=== PATIENT | female | born 1945 | race Caucasian/White ===

== ENCOUNTER → 2016-10-08 | Outpatient (CLI) | payer OTHER ==
[~2016-10-08] MED LIST: ALBUAER INH; AMOX500C3 PO; ATEN-173 PO; ATEN50TA8 PO; CHOL1TAB42 PO; CLR10 PO; CYAN10005 IM; DIPH1TAB PO; FLUT220A INH; HYDR-4330 PO; IBUP-1050 PO; LIDO5DIS10 TD; LIOT5TAB9 PO; ONDA4TAB46 PO; OPTIRAY 320 IV PRN; PRLSR20 PO; SYN100 PO; TRIA37.5 PO; TYLOTC500 PO; WARF5TAB7 PO
--- NOTE | 2016-10-08 13:18 | DIAGNOSTIC IMAGING REPORT ---
ABDOMEN AND PELVIS CT WITH IV AND ORAL CONTRAST CT DOSE: 1250.54 mGy.cm HISTORY: Pain. Nausea. RLQ PAIN TECHNIQUE: Multiaxial CT images of the abdomen and pelvis were performed following the use of intravenous and oral contrast. COMPARISON STUDY: None. FINDINGS: Lung bases are clear. Mild fatty infiltration of liver. Gallbladder is negative for distention. Diffuse fatty replacement of the pancreas. Kidneys enhance uniformly. There are postoperative changes to low lumbar spine. Bowel pattern is nonobstructive. The appendix is normal. Findings of mild chronic sigmoid diverticulosis. There is no evidence for acute diverticulitis. Patient is status post total right hip replacement. IMPRESSION: 1. No acute process of the abdomen or pelvis. 2. Normal appendix. 3. Diffuse fatty infiltration of the pancreas. 4. Mild chronic sigmoid diverticulosis. Electronically signed by: Samuel Washington M.D. 10/08/2016 1:17 PM Dictated Date/Time: 10/08/2016 1:11 PM
== END | disposition home or self-care (01) ==
LOC: C.CTS 12:26
PROVIDERS: ATTEND Registered Nurse
DX: R10.31 Right lower quadrant pain (principal); K86.89 Other specified diseases of pancreas

== ENCOUNTER → 2016-12-05 | Outpatient (CLI) | payer OTHER ==
[~2016-12-05] MED LIST changes: -OPTIRAY 320 IV PRN
== END | disposition home or self-care (01) ==
LOC: C.LAB1850 14:44
PROVIDERS: ATTEND Internal Medicine
DX: R35.0 Frequency of micturition (principal); E89.0 Postprocedural hypothyroidism; E55.9 Vitamin D deficiency, unspecified; G89.29 Other chronic pain; Z12.11 Encounter for screening for malignant neoplasm of colon

== ENCOUNTER → 2016-12-24 | Outpatient (CLI) | payer OTHER ==
[~2016-12-24] MED LIST changes: -DIPH1TAB PO; +DIPH1TAB87 PO
[2016-12-24 13:47] LABS: C-REACTIVE PROTEIN 0.89 mg/dl (0-0.29); RHEUMATOID FACTOR < 10.0 U/mL (0-15)
[2016-12-27 09:57] LABS: ANTI-CENTROMERE AB <1.0 NEG AI (<1.0 NEG); ANTI-SS-A <1.0 NEG AI (<1.0 NEG); ANTI-SS-B <1.0 NEG AI (<1.0 NEG); CYCLIC CITRULLINATED PEPT IGG <16 UNITS (<20); DNA ds CRITHIDIA NEGATIVE (NEGATIVE); MICROSOMAL AB 3 IU/ML (<9); Sm Antibody <1.0 NEG AI (<1.0 NEG)
== END | disposition home or self-care (01) ==
LOC: C.LAB1850 10:57
PROVIDERS: ATTEND Internal Medicine
DX: M25.50 Pain in unspecified joint (principal); E89.0 Postprocedural hypothyroidism; E53.8 Deficiency of other specified B group vitamins; Z51.81 Encounter for therapeutic drug level monitoring; Z79.01 Long term (current) use of anticoagulants; I48.91 Unspecified atrial fibrillation

== ENCOUNTER → 2017-01-02 | Outpatient (CLI) | payer OTHER | END | disposition home or self-care (01) | LOC: C.LABSPEC 16:26 | PROVIDERS: ATTEND Physician Assistant | DX: J02.9 Acute pharyngitis, unspecified (principal) ==

== ENCOUNTER → 2017-02-06 | Outpatient (CLI) | payer OTHER | END | disposition home or self-care (01) | LOC: C.LAB1850 15:04 | PROVIDERS: ATTEND Internal Medicine | DX: R89.4 Abnormal immunological findings in specimens from other organs, systems and tissues (principal) ==

== ENCOUNTER → 2017-06-14 | Outpatient (CLI) | payer OTHER ==
[~2017-06-14] MED LIST changes: +DIPH1TAB PO; -DIPH1TAB87 PO
[2017-06-14 15:44] LABS: BLOOD UREA NITROGEN 15 mg/dl (7-18)
== END | disposition home or self-care (01) ==
LOC: C.LAB1850 14:21
DX: H90.41 Sensorineural hearing loss, unilateral, right ear, with unrestricted hearing on the contralateral side (principal)

== ENCOUNTER → 2017-06-26 | Outpatient (CLI) | payer OTHER ==
[~2017-06-26] MED LIST changes: +GADAVIST IV PRN
--- NOTE | 2017-06-26 12:28 | DIAGNOSTIC IMAGING REPORT ---
SOFT TISS HEAD/NECK-THYROID CLINICAL HISTORY: 71 years-old Female with R SIDE HEARING LOSS. Acute right-sided hearing loss. History of prior radiation to the thyroid over 20 years ago with history of Graves' disease COMPARISON: CT chest 04/05/2014 TECHNIQUE: Multiple real time sonographic images of the thyroid were obtained accessing zuniga scale appearance and color doppler flow. FINDINGS: Study is limited secondary to body habitus. MEASUREMENTS: Right lobe: 3.7 x 1.1 x 1.1 cm Left lobe: 2.9 x 0.9 x 0.9 cm Isthmus: 0.2 cm PARENCHYMA: The thyroid parenchymal echotexture is generally homogeneous and is slightly echogenic. NODULES: No discrete nodules are appreciated. IMPRESSION: 1. Echogenic slightly diminutive size of the thyroid may be secondary to a history of prior thyroiditis or radiation therapy. No discrete thyroid nodule identified. 2. Limited study as above. The above report was generated using voice recognition software. It may contain grammatical, syntax or spelling errors. Electronically signed by: Martin Jaffe M.D. 06/26/2017 12:27 PM Dictated Date/Time: 06/26/2017 12:23 PM
--- NOTE | 2017-06-26 13:52 | DIAGNOSTIC IMAGING REPORT ---
BRAIN COMBO FOR IAC HISTORY: 71 years-old Female R SIDE HEARING LOSS acute right-sided hearing loss status post acoustic trauma to neck years prior. Bilateral hearing loss, right greater than left, progressively worsened COMPARISON: None available TECHNIQUE: Multiplanar multisequence MRI of the brain was obtained both with and without the use of 10.7 mL Gadavist utilizing institutional internal auditory canal protocol. FINDINGS: There is no restricted diffusion to suggest acute ischemia. The midline structures including the corpus callosum, brainstem, optic chiasm, infundibulum and pituitary gland are unremarkable in the sagittal T1 sequence. There is no cerebellar tonsillar herniation. 5 mm pineal gland cyst incidentally noted. Mild uncovertebral spurring and facet arthrosis of the imaged upper cervical spine. Degenerative pannus is noted surrounding the odontoid process. There is no acute intracranial hemorrhage, midline shift, abnormal extra-axial collections, hydrocephalus or intracranial mass. No focal signal abnormalities of the brain parenchyma identified. There is normal course of the bilateral 7th and 8th cranial nerves without mass identified involving the internal auditory canal. No cerebellar pontine angle mass. Cisternal portions of the bilateral 5th cranial nerves also appear normal. No abnormal enhancement identified. No enhancing intra-axial or extra-axial mass. The major flow voids at the level of the skull base appear patent. There is thinning of the optic lenses bilaterally. Mastoid air cells are clear. Paranasal sinuses are also clear. Scalp and soft tissues are unremarkable. IMPRESSION: 1. No acute intracranial abnormality. 2. Normal appearance of the bilateral internal auditory canals without abnormal enhancement or focal mass. 3. Incidental note is made of a 5 mm pineal gland cyst. The above report was generated using voice recognition software. It may contain grammatical, syntax or spelling errors. Electronically signed by: Martin Jaffe M.D. 06/26/2017 1:51 PM Dictated Date/Time: 06/26/2017 1:43 PM
== END | disposition home or self-care (01) ==
LOC: C.ULTRBC 11:30
DX: R07.0 Pain in throat (principal); H90.41 Sensorineural hearing loss, unilateral, right ear, with unrestricted hearing on the contralateral side

== ENCOUNTER → 2017-07-02 | Outpatient (CLI) | payer OTHER ==
[~2017-07-02] MED LIST changes: -GADAVIST IV PRN
--- NOTE | 2017-07-02 11:27 | DIAGNOSTIC IMAGING REPORT ---
(BARIUM SWALLOW) ESOPHAGUS CLINICAL HISTORY: 71 years-old Female with R07.0 Throat discomfort. Patient reports acute stroke pain with feeling of intermittent aspiration. TECHNIQUE: Barium contrast, barium tablet and effervescent crystals were administered to the patient under fluoroscopic examination. Multiple images were obtained and submitted for review. FLUOROSCOPY TIME: 1.2 minutes COMPARISON: CTA of the chest 04/05/2014. FINDINGS: Study was limited secondary to patient cooperation. During deglutition, contrast material flowed freely through the cervical esophagus. No filling defect or mucosal abnormality is identified. Barium tablet passed freely. No abnormal stricturing or mass effect is seen. The mid to distal esophagus is well coated and distended. No abnormal stricturing or mucosal abnormality is identified. No significant reflux or hiatal hernia was demonstrated during the exam. The gastroesophageal junction is normal in appearance. Mild tertiary contractions are seen within the distal one third of the esophagus. IMPRESSION: 1. Mild tertiary contractions of the distal esophagus with otherwise normal study. 2. No gastroesophageal reflux identified. The above report was generated using voice recognition software. It may contain grammatical, syntax or spelling errors. Electronically signed by: Martin Jaffe M.D. 07/02/2017 11:25 AM Dictated Date/Time: 07/02/2017 11:23 AM
== END | disposition home or self-care (01) ==
LOC: C.RAD 10:39
PROVIDERS: ATTEND Internal Medicine
DX: R07.0 Pain in throat (principal)

== ENCOUNTER → 2017-09-26 | Outpatient (CLI) | payer OTHER ==
[~2017-09-26] MED LIST changes: -DIPH1TAB PO; +DIPH1TAB87 PO
[2017-09-26 10:15] LABS: BASO % 0.3 %; BASO ABS # 0.02 K/uL (0-0.2); EOS % 4.1 %; HEMATOCRIT 41.2 % (37-47); HEMOGLOBIN 13.5 g/dL (12.0-16.0); IG# 0.01 K/uL (0.00-0.02); LYMPH % 23.8 %; LYMPH ABS # 1.72 K/uL (1.2-3.4); MEAN CELL VOLUME 92.6 fL (80-100); MEAN CORPUSCULAR HEMOGLOBIN 30.3 pg (25-34); MEAN CORPUSCULAR HGB CONC 32.8 g/dl (32-36); MONO % 6.2 %; MONO ABS # 0.45 K/uL (0.11-0.59); NEUT % 65.5 %; NEUT ABS # 4.74 K/uL (1.4-6.5); PLATELET COUNT 228 K/uL (130-400); RED CELL DISTRIBUTION WIDTH CV 14.1 % (11.5-14.5); WHITE BLOOD COUNT 7.24 K/uL (4.8-10.8)
[2017-09-26 10:44] LABS: ALBUMIN 3.6 gm/dl (3.4-5.0); ALT/SGPT 28 U/L (12-78); AST/SGOT 13 U/L (15-37); BLOOD UREA NITROGEN 17 mg/dl (7-18); CALCIUM 9.4 mg/dl (8.5-10.1); CARBON DIOXIDE 33 mmol/L (21-32); CREATININE 1.06 mg/dl (0.60-1.20); GLUCOSE 92 mg/dl (70-99); POTASSIUM 3.6 mmol/L (3.5-5.1); SODIUM 139 mmol/L (136-145)
[2017-09-26 10:53] LABS: ALKALINE PHOSPHATASE 85 U/L (45-117); CHOLESTEROL 228 mg/dl (0-200); LDL CHOLESTEROL CALCULATED 129 mg/dl; TOTAL PROTEIN 7.3 gm/dl (6.4-8.2)
[2017-09-26 11:15] LABS: HEMOGLOBIN A1C 5.9 % (4.5-5.6)
[2017-09-26 13:02] LABS: T3 FREE 3.82 pg/ml (2.30-4.20)
== END | disposition home or self-care (01) ==
LOC: C.LAB1850 09:01
PROVIDERS: ATTEND Internal Medicine
DX: E78.5 Hyperlipidemia, unspecified (principal); I48.91 Unspecified atrial fibrillation; E89.0 Postprocedural hypothyroidism; E53.8 Deficiency of other specified B group vitamins; E55.9 Vitamin D deficiency, unspecified; R73.9 Hyperglycemia, unspecified

== ENCOUNTER → 2018-01-24 | Outpatient (CLI) | payer OTHER | END | disposition home or self-care (01) | LOC: C.LAB1850 13:16 | PROVIDERS: ATTEND Internal Medicine | DX: R39.9 Unspecified symptoms and signs involving the genitourinary system (principal) ==